=== PATIENT | female | born 1990 ===

== ENCOUNTER 2017-02-22 16:10 | Emergency (ER) | payer MEDICAID ==
[2017-02-22 16:21] VITALS: BP 120/82; PULSE 85; RESP 16; TEMP 99.7; O2SAT 100
--- NOTE | 2017-02-22 17:19 | ED PDOC ---
Lower Extremity Pain/Injury Time Seen by Provider: 02/22/17 16:23 Chief Complaint (Nursing): Lower Extremity Problem/Injury Chief Complaint (Provider): Bilateral knee pain History Per: Patient History/Exam Limitations: no limitations Onset/Duration Of Symptoms: Days (x 2 days) Current Symptoms Are (Timing): Still Present Additional Complaint(s): Naomy Loaiza is a 26-year-old female who presents to the emergency department complaining of bilateral knee pain, ongoing for the past 2 days. Patient denies sustaining a fall or injury. She also complains of finger numbness, ongoing for 3 weeks, for which she has not yet seen her primary medical doctor. Patient admits taking Motrin once yesterday, but none today. PMD: Dr. Skaggs Past Medical History Reviewed: Historical Data, Nursing Documentation, Vital Signs Vital Signs: Last Vital Signs Temp 99.7 F H 02/22/17 16:17 Pulse 85 02/22/17 16:17 Resp 16 02/22/17 16:17 BP 120/82 02/22/17 16:17 Pulse Ox 100 02/22/17 16:17 - Medical History PMH: Asthma, Chronic Pain (Back pain ) Denies: Chronic Kidney Disease - Surgical History Surgical History: No Surg Hx - Family History Family History: States: Unknown Family Hx - Immunization History Hx Tetanus Toxoid Vaccination: No Hx Influenza Vaccination: No Hx Pneumococcal Vaccination: No - Home Medications Home Medications: Ambulatory Orders Medication Instructions Recorded Proventil Hfa 2 puff INH BID 06/18/13 Nitrofurantoin Macrocrystals 100 mg PO BID #14 cap 11/15/16 [Macrobid] - Allergies Allergies/Adverse Reactions: Allergies Allergy/AdvReac Type Severity Reaction Status Date / Time banana Allergy SHORTNESS Verified 02/22/17 16:17 OF BREATH walnut Allergy SHORTNESS Verified 02/22/17 16:17 OF BREATH dust Allergy Unknown SHORTNESS Uncoded 11/15/16 17:22 OF BREATH Review of Systems ROS Statement: Except As Marked, All Systems Reviewed And Found Negative Musculoskeletal: Positive for: Other (Knee pain bilaterally) Neurological: Positive for: Other (Finger numbness) Physical Exam - Reviewed Nursing Documentation Reviewed: Yes Vital Signs Reviewed: Yes - Physical Exam Appears: Positive for: Well, Non-toxic, No Acute Distress Head Exam: Positive for: ATRAUMATIC, NORMAL INSPECTION, NORMOCEPHALIC Skin: Positive for: Normal Color, Warm, Dry Eye Exam: Positive for: Normal appearance Neck: Positive for: Normal, Painless ROM, Supple Neurologic/Psych: Positive for: Alert, Oriented - ECG O2 Sat by Pulse Oximetry: 100 (RA) Pulse Ox Interpretation: Normal Medical Decision Making Medical Decision Making: Time: 17:22 Initial Plan: --Toradol 30 mg IM --Pending X-Ray: Knee 3 views bi (RAD) x-ray: Both patellas appear mildly displaced laterally Scribe Attestation: Documented by Deepti Reilly, acting as a scribe for Belle Capone PA-C Provider Scribe Attestation: All medical record entries made by the Scribe were at my direction and personally dictated by me. I have reviewed the chart and agree that the record accurately reflects my personal performance of the history, physical exam, medical decision making, and the department course for this patient. I have also personally directed, reviewed, and agree with the discharge instructions and disposition. Disposition - Clinical Impression Clinical Impression: Knee pain - Patient ED Disposition Is Patient to be Admitted: No - Disposition Referrals: Merrick Skaggs MD [Primary Care Provider] - John Rendon MD [Staff Provider] - Disposition: Routine/Home Disposition Time: 18:10 Condition: GOOD Additional Instructions: Ice, elevation, motrin. Please follow-up with orthopedics. Instructions: Knee Pain (ED)
--- NOTE | 2017-02-23 13:18 | RAD ---
PROCEDURE: Bilateral Knee Radiographs. HISTORY: bilateral knee pain COMPARISON: None. FINDINGS: BONES: Bone alignment and mineralization are normal. There is no acute displaced fracture or bone destruction. JOINTS: Right Knee: Normal. Left knee: Normal. SOFT TISSUES: Right Knee: Normal. Left Knee: Normal. JOINT EFFUSION: Right Knee: None. Left Knee: None. OTHER FINDINGS: None. IMPRESSION: Normal examination.
== END 2017-02-22 18:40 | disposition home or self-care (01) ==
LOC: H.ER 16:10
DX: G89.29 Other chronic pain (principal); J45.909 Unspecified asthma, uncomplicated
CPT/HCPCS: 73562; 81025; 96372; 99282; J1885

== ENCOUNTER 2017-04-18 08:07 | Emergency (ER) | payer MEDICAID ==
[2017-04-18 08:12] VITALS: BMI 40.8
[2017-04-18 08:13] VITALS: BP 106/71; PULSE 70; RESP 17; TEMP 98.2; O2SAT 98
--- NOTE | 2017-04-18 09:36 | ED PDOC ---
Lower Extremity Pain/Injury Time Seen by Provider: 04/18/17 09:07 Chief Complaint (Nursing): Lower Extremity Problem/Injury Chief Complaint (Provider): Right knee pain History Per: Patient History/Exam Limitations: no limitations Onset/Duration Of Symptoms: Days (x1) Current Symptoms Are (Timing): Still Present Additional Complaint(s): Naomy Loaiza is a 26 year old female, with a past medical history of chronic back pain and asthma, who presents to the emergency department complaining of an atraumatic right knee radiating to her ankle for 1 day. Patient reports swollen right leg and knee and states symptoms worsen with ambulation. Patient has a history of hip and knee problems and was seen 2 months ago for the same symptoms. Patient denies any numbness or tingling, chest pain, shortness of breath, nausea, vomit, and abdominal pain. No further medical complaints. PMD: Merrick Skaggs Past Medical History Reviewed: Historical Data, Nursing Documentation, Vital Signs Vital Signs: Last Vital Signs Temp 98.2 F 04/18/17 08:12 Pulse 70 04/18/17 08:12 Resp 17 04/18/17 08:12 BP 106/71 04/18/17 08:12 Pulse Ox 98 04/18/17 08:12 - Medical History PMH: Asthma, Chronic Pain (Back pain ) Denies: Chronic Kidney Disease - Family History Family History: States: Unknown Family Hx - Social History Current smoker - smoking cessation education provided: No Alcohol: None Drugs: Denies - Immunization History Hx Tetanus Toxoid Vaccination: No Hx Influenza Vaccination: No Hx Pneumococcal Vaccination: No - Home Medications Home Medications: Ambulatory Orders Medication Instructions Recorded Proventil Hfa 2 puff INH BID 06/18/13 Nitrofurantoin Macrocrystals 100 mg PO BID #14 cap 11/15/16 [Macrobid] Ibuprofen [Motrin] 600 mg PO Q6 #30 tab 04/18/17 - Allergies Allergies/Adverse Reactions: Allergies Allergy/AdvReac Type Severity Reaction Status Date / Time banana Allergy SHORTNESS Verified 02/22/17 16:17 OF BREATH walnut Allergy SHORTNESS Verified 02/22/17 16:17 OF BREATH dust Allergy Unknown SHORTNESS Uncoded 11/15/16 17:22 OF BREATH Review of Systems ROS Statement: Except As Marked, All Systems Reviewed And Found Negative Cardiovascular: Negative for: Chest Pain Respiratory: Negative for: Shortness of Breath Gastrointestinal: Negative for: Nausea, Vomiting, Abdominal Pain Musculoskeletal: Positive for: Other (right hip pain radiating to her ankle) Physical Exam - Reviewed Nursing Documentation Reviewed: Yes Vital Signs Reviewed: Yes - Physical Exam Appears: Positive for: Well, Non-toxic, No Acute Distress Head Exam: Positive for: ATRAUMATIC, NORMAL INSPECTION, NORMOCEPHALIC Skin: Positive for: Normal Color, Warm, Dry Eye Exam: Positive for: Normal appearance, EOMI, PERRL ENT: Positive for: Normal ENT Inspection Neck: Positive for: Normal, Painless ROM, Supple Cardiovascular/Chest: Positive for: Regular Rate, Rhythm. Negative for: Murmur Respiratory: Positive for: Normal Breath Sounds. Negative for: Respiratory Distress Gastrointestinal/Abdominal: Positive for: Normal Exam, Bowel Sounds, Soft. Negative for: Tenderness (No bony hip tenderness, normal ROM at hip) Back: Positive for: Normal Inspection Extremity: Negative for: Normal ROM (decreased active ROM at the right knee ), Tenderness (ankle: wnl, no tenderness, no ligamentous instability or swelling), Calf Tenderness, Deformity Neurologic/Psych: Positive for: Alert, Oriented, Gait (steady). Negative for: Motor/Sensory Deficits - ECG O2 Sat by Pulse Oximetry: 98 (RA) Pulse Ox Interpretation: Normal Medical Decision Making Medical Decision Making: Initial Impression: 26 y/o female with right knee pain. Duplex to rule out DVT. r/o fracture Initial Plan: --Toradol 30 mg IM --Urine --Knee w/ patella right 3 views [RAD] --Duplex lower extrm vein right [US] --reevaluation 1016 Extremity US FINDINGS: COMMON FEMORAL VEIN: Normal compressibility, augmentation response and color flow. SUPERFICIAL FEMORAL VEIN: Normal compressibility, augmentation response and color flow. POPLITEAL VEIN: Normal compressibility, augmentation response and color flow. POSTERIOR TIBIAL VEIN: Normal compressibility, augmentation response and color flow. OTHER FINDINGS: None. IMPRESSION: No evidence of deep venous thrombosis in the right lower extremity. 1037 Knee X-ray FINDINGS: BONES: Normal. No fracture. JOINTS: Normal. JOINT EFFUSION: There is a small suprapatellar joint effusion. OTHER FINDINGS: None. IMPRESSION: No acute fracture or dislocation. Scribe Attestation: Documented by George Hidalgo, acting as a scribe for Lashell Saldana MD. Provider Scribe Attestation: All medical record entries made by the Scribe were at my direction and personally dictated by me. I have reviewed the chart and agree that the record accurately reflects my personal performance of the history, physical exam, medical decision making, and the department course for this patient. I have also personally directed, reviewed, and agree with the discharge instructions and disposition. 10:20AM Range of motion improved after toradol. Patient discharged with knee immobilizer and instructions to follow-up with PMD for further evaluation. Requesting school note which was given. Disposition - Clinical Impression Clinical Impression: Knee pain - Disposition Disposition: Routine/Home Disposition Time: 11:01 Condition: GOOD Additional Instructions: Wear knee immobilizer. Follow-up with PMD for persistent pain for further evaluation and likely outpatient MRI. Return to ED if condition worsens. Motrin for pain. Prescriptions: Ibuprofen [Motrin] 600 mg PO Q6 #30 tab Instructions: Knee Pain (ED) Forms: [facility] (Macedonian), [facility] ED School/Work Excuse
--- NOTE | 2017-04-18 10:18 | US ---
PROCEDURE: Right lower extremity venous duplex Doppler. HISTORY: Right leg swelling, knee pain COMPARISON: None available. TECHNIQUE: Common femoral, superficial femoral, popliteal and posterior tibial veins were evaluated. Flow was assessed with color Doppler, compressibility, assessment of phasic flow and augmentation response. FINDINGS: COMMON FEMORAL VEIN: Normal compressibility, augmentation response and color flow. SUPERFICIAL FEMORAL VEIN: Normal compressibility, augmentation response and color flow. POPLITEAL VEIN: Normal compressibility, augmentation response and color flow. POSTERIOR TIBIAL VEIN: Normal compressibility, augmentation response and color flow. OTHER FINDINGS: None. IMPRESSION: No evidence of deep venous thrombosis in the right lower extremity.
--- NOTE | 2017-04-18 10:39 | RAD ---
PROCEDURE: Right Knee Radiographs. HISTORY: R knee pain COMPARISON: 02/22/2017. FINDINGS: BONES: Normal. No fracture. JOINTS: Normal. JOINT EFFUSION: There is a small suprapatellar joint effusion. OTHER FINDINGS: None. IMPRESSION: No acute fracture or dislocation.
== END 2017-04-18 11:26 | disposition home or self-care (01) ==
LOC: H.ER 08:07
DX: M25.561 Pain in right knee (principal); J45.909 Unspecified asthma, uncomplicated; G89.29 Other chronic pain
CPT/HCPCS: 29530; 73562; 81025; 93971; 96372; 99283; J1885

== ENCOUNTER 2017-08-15 09:06 | Emergency (ER) | payer MEDICAID ==
[2017-08-15 09:07] VITALS: BMI 40.8
[2017-08-15] MEDS ORDERED: Albuterol-Ipratrop 3 mg / 0.5 (3 ml) UD INH STA (09:34)
[2017-08-15 09:41] VITALS: RESP 20; O2SAT 98
--- NOTE | 2017-08-15 09:42 | ED PDOC ---
HPI: CCC, URI, Sore Throat Time Seen by Provider: 08/15/17 09:22 Chief Complaint (Nursing): Cough, Cold, Congestion Chief Complaint (Provider): Cough History Per: Patient History/Exam Limitations: no limitations Onset/Duration Of Symptoms: Days (1 week) Additional Complaint(s): Pt. with cough, congestion, runny nose. Feels chest congestion like her asthma. Dyspnea/wheezes. Bodyaches. Headache mild all over that is not worst of her life. No weakness, abd pain, back pain. Has a fever at home and took ibuprofen yesterday. No nausea, vomit, diarrhea. No weakness. No numbness, tingles. Past Medical History Reviewed: Nursing Documentation, Vital Signs Vital Signs: Last Vital Signs Temp 99.3 F 08/15/17 09:31 Pulse 98 H 08/15/17 09:31 Resp 20 08/15/17 09:31 BP 120/83 08/15/17 09:31 Pulse Ox 98 08/15/17 09:51 - Medical History PMH: Asthma, Chronic Pain (Back pain ) Denies: Chronic Kidney Disease - Family History Family History: States: Unknown Family Hx - Social History Current smoker - smoking cessation education provided: No Alcohol: None Drugs: Denies - Immunization History Hx Tetanus Toxoid Vaccination: No Hx Influenza Vaccination: No Hx Pneumococcal Vaccination: No - Home Medications Home Medications: Ambulatory Orders Medication Instructions Recorded Proventil Hfa 2 puff INH BID 06/18/13 Nitrofurantoin Macrocrystals 100 mg PO BID #14 cap 11/15/16 [Macrobid] Ibuprofen [Motrin] 600 mg PO Q6 #30 tab 04/18/17 Benzonatate [Tessalon Perles] 100 mg PO BID PRN 5 Days sgl 08/15/17 Ibuprofen [Motrin] 600 mg PO TID 7 Days tab 08/15/17 - Allergies Allergies/Adverse Reactions: Allergies Allergy/AdvReac Type Severity Reaction Status Date / Time banana Allergy SHORTNESS Verified 08/15/17 09:31 OF BREATH walnut Allergy SHORTNESS Verified 08/15/17 09:31 OF BREATH dust Allergy Unknown SHORTNESS Uncoded 08/15/17 09:31 OF BREATH Review of Systems Constitutional: Positive for: Fever. Negative for: Weakness ENT: Positive for: Nose Pain, Nose Discharge, Nose Congestion Cardiovascular: Negative for: Chest Pain, Edema, Light Headedness Respiratory: Positive for: Cough, Shortness of Breath, Wheezing Gastrointestinal: Negative for: Nausea, Vomiting, Abdominal Pain Musculoskeletal: Negative for: Neck Pain, Shoulder Pain, Arm Pain Skin: Negative for: Rash, Lesions Neurological: Positive for: Headache. Negative for: Weakness, Numbness Physical Exam - Reviewed Nursing Documentation Reviewed: Yes Vital Signs Reviewed: Yes - Physical Exam Appears: Positive for: Non-toxic, No Acute Distress Head Exam: Positive for: ATRAUMATIC, NORMAL INSPECTION, NORMOCEPHALIC Skin: Positive for: Normal Color, Warm, DRY Eye Exam: Positive for: EOMI, Normal appearance, PERRL ENT: Positive for: Nasal Congestion Neck: Positive for: Normal, Painless ROM Cardiovascular/Chest: Positive for: Regular Rate, Rhythm. Negative for: Edema Respiratory: Positive for: Decreased Breath Sounds. Negative for: Accessory Muscle Use, Wheezing, Respiratory Distress Gastrointestinal/Abdominal: Positive for: Normal Exam, Bowel Sounds, Soft. Negative for: Tenderness Back: Positive for: Normal Inspection. Negative for: L CVA Tenderness, R CVA Tenderness Extremity: Positive for: Normal ROM. Negative for: Tenderness, Pedal Edema Neurologic/Psych: Positive for: Alert, Oriented - Laboratory Results Interpretation Of Abn Labs: no acute - ECG O2 Sat by Pulse Oximetry: 98 Pulse Ox Interpretation: Normal - Progress ED Course And Treament: 1051: Stable. AAOx3. Pain free. Tolerated PO. Fu with pcp. Likely URI. Disposition - Clinical Impression Clinical Impression: URI (upper respiratory infection) - Patient ED Disposition Is Patient to be Admitted: No Counseled Patient/Family Regarding: Studies Performed, Diagnosis, Need For Followup, Rx Given - Disposition Referrals: [facility] [Outside] - 08/16/17 Disposition: Routine/Home Disposition Time: 10:52 Condition: STABLE Additional Instructions: Return if not better in 3 days. Prescriptions: Benzonatate [Tessalon Perles] 100 mg PO BID PRN 5 Days sgl PRN Reason: Cough Ibuprofen [Motrin] 600 mg PO TID 7 Days tab Instructions: Upper Respiratory Infection (ED) Forms: [employer] (Pashto), [facility] ED School/Work Excuse
[2017-08-15 11:06] VITALS: BP 120/70; PULSE 76; TEMP 98
== END 2017-08-15 11:06 | disposition home or self-care (01) ==
LOC: H.ER 09:06
DX: J06.9 Acute upper respiratory infection, unspecified (principal); G89.29 Other chronic pain; J45.909 Unspecified asthma, uncomplicated

== ENCOUNTER 2017-08-27 21:43 | Emergency (ER) | payer MEDICAID ==
[2017-08-27 21:44] VITALS: BMI 40.8
[2017-08-27] MEDS ORDERED: Albuterol-Ipratrop 3 mg / 0.5 (3 ml) UD INH STA ×3 (22:51→22:54)
[2017-08-27 22:53] VITALS: BP 150/117; PULSE 102; RESP 16; TEMP 98.4; O2SAT 97
--- NOTE | 2017-08-27 23:06 | ED PDOC ---
HPI: CCC, URI, Sore Throat Time Seen by Provider: 08/27/17 22:08 Chief Complaint (Nursing): Cough, Cold, Congestion Chief Complaint (Provider): Cough, Cold, Congestion History Per: Patient History/Exam Limitations: no limitations Onset/Duration Of Symptoms: Days (x2 weeks) Current Symptoms Are (Timing): Still Present Additional Complaint(s): 27 year old female with previous medical history of asthma, who presents to the emergency department with a complaint of cough with productive yellow sputum associated with nausea, headache, generalized bodyaches, runny nose and chest tightness ongoing for 2 weeks. Denied any fever or chills. Patient was recently seen in ED for similar symptoms and discharged with cough medication and Ibuprofen. She then followed up with her PMD who prescribed more Ibruprofen but with persistent symptoms, prompted visit to ED tonight. PMD: Ketan Bassett MD Past Medical History Reviewed: Historical Data, Nursing Documentation, Vital Signs Vital Signs: Last Vital Signs Temp 98.4 F 08/27/17 21:50 Pulse 102 H 08/27/17 21:50 Resp 16 08/27/17 21:50 BP 150/117 H 08/27/17 21:50 Pulse Ox 97 08/28/17 00:25 - Medical History PMH: Asthma, Chronic Pain (Back pain ) Denies: Chronic Kidney Disease - Surgical History Surgical History: No Surg Hx - Family History Family History: States: Unknown Family Hx - Social History Current smoker - smoking cessation education provided: No Alcohol: None Drugs: Denies - Immunization History Hx Tetanus Toxoid Vaccination: No Hx Influenza Vaccination: No Hx Pneumococcal Vaccination: No - Home Medications Home Medications: Ambulatory Orders Medication Instructions Recorded Proventil Hfa 2 puff INH BID 06/18/13 Nitrofurantoin Macrocrystals 100 mg PO BID #14 cap 11/15/16 [Macrobid] Ibuprofen [Motrin] 600 mg PO Q6 #30 tab 04/18/17 Benzonatate [Tessalon Perles] 100 mg PO BID PRN 5 Days sgl 08/15/17 Ibuprofen [Motrin] 600 mg PO TID 7 Days tab 08/15/17 Albuterol 0.083% [Albuterol 3 ml IH Q4 PRN #50 neb 08/28/17 Sulfate 3 Ml] Azithromycin 1 tab PO DAILY #6 tab 08/28/17 Nebulizer [Aeroeclipse II] 1 each MC PRN PRN #1 each 08/28/17 Prednisone 50 mg PO DAILY #4 tablet 08/28/17 - Allergies Allergies/Adverse Reactions: Allergies Allergy/AdvReac Type Severity Reaction Status Date / Time banana Allergy SHORTNESS Verified 08/15/17 09:31 OF BREATH walnut Allergy SHORTNESS Verified 08/15/17 09:31 OF BREATH dust Allergy Unknown SHORTNESS Uncoded 08/15/17 09:31 OF BREATH Review of Systems ROS Statement: Except As Marked, All Systems Reviewed And Found Negative Constitutional: Positive for: Other (generalized bodyaches). Negative for: Fever, Chills ENT: Positive for: Nose Discharge Cardiovascular: Positive for: Chest Pain (tightness) Respiratory: Positive for: Cough, Sputum (yellow). Negative for: Hemoptysis Gastrointestinal: Positive for: Nausea Neurological: Positive for: Headache Physical Exam - Reviewed Nursing Documentation Reviewed: Yes Vital Signs Reviewed: Yes - Physical Exam Appears: Positive for: Non-toxic, In Acute Distress Head Exam: Positive for: ATRAUMATIC, NORMOCEPHALIC Skin: Positive for: Warm, Dry Eye Exam: Positive for: EOMI, PERRL ENT: Positive for: Pharynx Is (clear). Negative for: Pharyngeal Erythema, Tonsillar Exudate Neck: Positive for: Painless ROM Cardiovascular/Chest: Positive for: Regular Rate, Rhythm, Chest Non Tender. Negative for: Murmur Respiratory: Positive for: Wheezing, Respiratory Distress (mild). Negative for : Accessory Muscle Use Gastrointestinal/Abdominal: Positive for: Soft. Negative for: Tenderness Back: Positive for: Normal Inspection. Negative for: Decreased ROM Extremity: Positive for: Normal ROM. Negative for: Deformity Lymphatic: Negative for: Adenopathy Neurologic/Psych: Positive for: Alert. Negative for: Motor/Sensory Deficits - Laboratory Results Result Diagrams: 08/27/17 23:49 08/27/17 23:49 - ECG O2 Sat by Pulse Oximetry: 97 (RA) Pulse Ox Interpretation: Normal Medical Decision Making Medical Decision Making: Initial Impression: Cough Differential Diagnosis: Bronchititis; pneumonia; asthma exacerbation; influenza ; viral illness Initial Plan: * VBG * CMP * Urine * Urine dipstick * CBC * CXR * Duoneb 3ml INH * Solu-medrol 125mg IVP * Blood culture * Influenza A B CXR with mild peribronchial thickening, No infiltrate or effusion Labs wnl DW pt findings and plan of care. Pt feels a little better. Scribe Attestation: Documented by Elvie Garner, acting as a scribe for Adrienne Yoo MD. Provider Scribe Attestation: All medical record entries made by the Scribe were at my direction and personally dictated by me. I have reviewed the chart and agree that the record accurately reflects my personal performance of the history, physical exam, medical decision making, and the department course for this patient. I have also personally directed, reviewed, and agree with the discharge instructions and disposition. Disposition - Clinical Impression Clinical Impression: Bronchitis, Asthma exacerbation Counseled Patient/Family Regarding: Studies Performed, Diagnosis, Need For Followup, Rx Given - Disposition Referrals: Ketan Bassett MD [Staff Provider] - 08/29/17 Disposition: Routine/Home Disposition Time: 00:15 Condition: IMPROVED Prescriptions: Albuterol 0.083% [Albuterol Sulfate 3 Ml] 3 ml IH Q4 PRN #50 neb PRN Reason: asthma Azithromycin 1 tab PO DAILY #6 tab Nebulizer [Aeroeclipse II] 1 each MC PRN PRN #1 each PRN Reason: asthma Prednisone 50 mg PO DAILY #4 tablet Instructions: Asthma (ED), Acute Bronchitis (ED) Forms: [facility] ED School/Work Excuse
[2017-08-27] MEDS ORDERED: Albuterol-Ipratrop 3 mg / 0.5 (3 ml) UD ONE (23:29)
[2017-08-27 23:53] LABS: BASO # 0.2 K/uL (0.0-0.2); BASO % 1.2 % (0.0-2.0); EOS # 0.5 K/uL (0.0-0.7); EOS % 3.2 % (0.0-4.0); HEMOGLOBIN 13.1 g/dL (12.0-16.0); LYMPH # 4.7 K/uL (1.0-4.3); LYMPH % 30.7 % (20.0-40.0); MEAN CELL VOLUME 84.7 fl (81.0-99.0); MEAN PLATELET VOLUME 8.9 fl (7.2-11.7); MONO # 0.6 K/uL (0.0-0.8); MONO % 3.7 % (0.0-10.0); NEUT # 9.3 K/uL (1.8-7.0); NEUT % 61.2 % (50.0-75.0); NRBC % 0.3 % (0.0-0.0); RBC 4.69 Mil/uL (3.80-5.20); RED CELL DISTRIBUTION WIDTH 15.6 % (11.5-14.5); WHITE BLOOD COUNT 15.2 K/uL (4.8-10.8)
[2017-08-27 23:56] LABS: VENOUS BLOOD GAS BASE EXCESS 2.9 mmol/L (0.0-2.0); VENOUS BLOOD GAS PCO2 43 mmHg (40-60); VENOUS BLOOD GAS PO2 53 mm/Hg (30-55); VENOUS BLOOD PH 7.42 (7.32-7.43)
[2017-08-28 00:02] LABS: GFR AFRICAN-AMERICAN > 60; GFR NON-AFRICAN AMERICAN > 60
[2017-08-28 00:14] LABS: ALB/GLOB RATIO 0.9 (1.0-2.1); ALT/SGPT 33 U/L (9-52); AST/SGOT 30 U/L (14-36); BLOOD UREA NITROGEN 15 mg/dl (7-17)
--- NOTE | 2017-08-28 11:09 | RAD ---
HISTORY: Shortness of breath, cough COMPARISON: 06/07/2012. TECHNIQUE: Chest PA and lateral FINDINGS: LUNGS: No active pulmonary disease. PLEURA: No significant pleural effusion identified. No pneumothorax apparent. CARDIOVASCULAR: Normal. OSSEOUS STRUCTURES: No significant abnormalities. VISUALIZED UPPER ABDOMEN: Normal. OTHER FINDINGS: None. IMPRESSION: No active disease. No significant interval change compared to the prior examination(s).
== END 2017-08-28 00:35 | disposition home or self-care (01) ==
LOC: H.ER 21:43
DX: J45.901 Unspecified asthma with (acute) exacerbation (principal); J40 Bronchitis, not specified as acute or chronic; G89.29 Other chronic pain
CPT/HCPCS: 71046; 80053; 81025; 82803; 85025; 87040; 87804; 94640; 96374; 99281; J2930

== ENCOUNTER 2017-09-25 13:53 | Emergency (ER) | payer MEDICAID ==
[2017-09-25 13:53] VITALS: BMI 40.8
[2017-09-25 14:08] VITALS: TEMP 98; O2SAT 98
--- NOTE | 2017-09-25 14:24 | ED PDOC ---
HPI: General Adult Time Seen by Provider: 09/25/17 14:22 Chief Complaint (Nursing): Shortness Of Breath Chief Complaint (Provider): SOB History Per: Patient Additional Complaint(s): 27-year-old female with history of asthma presents with shortness of breath and cough that started yesterday. Patient denies fever or chills. She has been compliant with her asthma medications but still feels short of breath. Patient denies recent travel or known sick contacts. Patient states her primary doctor started her on a second maintenance inhaler last week but she does not know the name of the new med. PMD: Dr. Bassett Past Medical History Reviewed: Historical Data, Nursing Documentation, Vital Signs Vital Signs: Last Vital Signs Temp 98.0 F 09/25/17 14:04 Pulse 102 H 09/25/17 14:04 Resp 20 09/25/17 16:07 BP 108/66 09/25/17 14:04 Pulse Ox 98 09/25/17 15:25 - Medical History PMH: Asthma - Family History Family History: States: No Known Family Hx - Living Arrangements Living Arrangements: With Family - Social History Current smoker - smoking cessation education provided: No Alcohol: Social Drugs: Denies - Home Medications Home Medications: Ambulatory Orders Medication Instructions Recorded Proventil Hfa 2 puff INH BID 06/18/13 Nitrofurantoin Macrocrystals 100 mg PO BID #14 cap 11/15/16 [Macrobid] Ibuprofen [Motrin] 600 mg PO Q6 #30 tab 04/18/17 Benzonatate [Tessalon Perles] 100 mg PO BID PRN 5 Days sgl 08/15/17 Ibuprofen [Motrin] 600 mg PO TID 7 Days tab 08/15/17 Albuterol 0.083% [Albuterol 3 ml IH Q4 PRN #50 neb 08/28/17 Sulfate 3 Ml] Azithromycin 1 tab PO DAILY #6 tab 08/28/17 Nebulizer [Aeroeclipse II] 1 each MC PRN PRN #1 each 08/28/17 Prednisone 50 mg PO DAILY #4 tablet 08/28/17 Albuterol HFA [Ventolin HFA 90 1 puff IH ASDIR #1 unit 09/25/17 mcg/actuation (8 g)] Benzonatate 200 mg PO TID PRN #20 capsule 09/25/17 Oseltamivir Phosphate [Tamiflu] 75 mg PO BID #10 capsule 09/25/17 Prednisone 50 mg PO DAILY #5 tablet 09/25/17 - Allergies Allergies/Adverse Reactions: Allergies Allergy/AdvReac Type Severity Reaction Status Date / Time banana Allergy SHORTNESS Verified 09/25/17 14:04 OF BREATH walnut Allergy SHORTNESS Verified 09/25/17 14:04 OF BREATH dust Allergy Unknown SHORTNESS Uncoded 08/15/17 09:31 OF BREATH Review of Systems ROS Statement: Except As Marked, All Systems Reviewed And Found Negative Constitutional: Negative for: Fever, Chills Cardiovascular: Positive for: Chest Pain Respiratory: Positive for: Cough, Shortness of Breath Physical Exam - Reviewed Nursing Documentation Reviewed: Yes Vital Signs Reviewed: Yes - Physical Exam Appears: Positive for: Well, Non-toxic, No Acute Distress Skin: Negative for: Rash Eye Exam: Positive for: Normal appearance Cardiovascular/Chest: Positive for: Regular Rate, Rhythm Respiratory: Positive for: Decreased Breath Sounds. Negative for: Wheezing, Respiratory Distress Extremity: Positive for: Normal ROM Neurologic/Psych: Positive for: Alert, Oriented - ECG Interpretation Of ECG: NSR 86 bpm, no acute finding, reviewed by PA and ED attending O2 Sat by Pulse Oximetry: 98 Pulse Ox Interpretation: Normal - Other Rad CXR X-Ray: Interpreted by Me, Viewed By Me X-Ray Interpretation: no acute finding Nebulizer Treatments/Peak Flow - Duonebs Number of Bronchodilator Doses given?: 1 (duoneb) - Pre/Post Peak Flow Pre Treatment Peak Flow: 300 Post treatment Peak Flow: 350 - Steroid Treatment Steroid: Oral (prednisone) - Clinical Response Clinical Response: Improved Medical Decision Making Medical Decision Makin27 year old with asthma exacerbation Plan: test CXR Duoneb x 1 Prednisone 60 mg PO EKG Flu A is positive. Will d/c with rx tamiflu, prednisone and tessalon perles. She was started to continue with Advil and Tylenol as needed for fever and body aches. Advised rest, fluids and follow up with primary doctor in 2-3 days. Disposition - Clinical Impression Clinical Impression: Influenza - Patient ED Disposition Is Patient to be Admitted: No Counseled Patient/Family Regarding: Studies Performed, Diagnosis, Need For Followup, Rx Given - Disposition Referrals: Ketan Bassett MD [Family Provider] - Disposition: Routine/Home Disposition Time: 16:57 Condition: STABLE Additional Instructions: Take prescription medications as directed. [id number] Tylenol and Motrin alternating for fever and body aches. Rest and drink plenty of fluids. Follow- up with primary doctor in 2-3 days. Prescriptions: Albuterol HFA [Ventolin HFA 90 mcg/actuation (8 g)] 1 puff IH ASDIR #1 unit Benzonatate 200 mg PO TID PRN #20 capsule PRN Reason: Cough Oseltamivir Phosphate [Tamiflu] 75 mg PO BID #10 capsule Prednisone 50 mg PO DAILY #5 tablet Instructions: Influenza (ED) Forms: [facility] (Pakistani), [facility] ED School/Work Excuse
[2017-09-25] MEDS ORDERED: Albuterol-Ipratrop 3 mg / 0.5 (3 ml) UD INH STA (14:54)
--- NOTE | 2017-09-25 15:20 | RAD ---
HISTORY: Cough COMPARISON: 09/25/2017 Time of the most recent examination: 13:43. TECHNIQUE: Chest PA and lateral FINDINGS: LUNGS: No active pulmonary disease. PLEURA: No significant pleural effusion identified. No pneumothorax apparent. CARDIOVASCULAR: Normal. OSSEOUS STRUCTURES: No significant abnormalities. VISUALIZED UPPER ABDOMEN: Normal. OTHER FINDINGS: None. IMPRESSION: No active disease. No significant interval change compared to the prior examination(s).
[2017-09-25] MEDS ORDERED: Albuterol-Ipratrop 3 mg / 0.5 (3 ml) UD ONE (15:28)
[2017-09-25 17:18] VITALS: BP 110/70; PULSE 98; RESP 18
--- NOTE | 2017-09-26 10:09 | CARD ---
APPROVED REPORT EKG Measurement Heart [id number] <Conclusion> Normal sinus rhythm Normal ECG
== END 2017-09-25 17:18 | disposition home or self-care (01) ==
LOC: H.ER 13:53
DX: J11.1 Influenza due to unidentified influenza virus with other respiratory manifestations (principal); J45.909 Unspecified asthma, uncomplicated

== ENCOUNTER 2018-01-01 19:08 | Emergency (ER) | payer MEDICAID, OTHER ==
[2018-01-01 19:08] VITALS: BMI 40.8
[2018-01-01 19:23] VITALS: BP 103/68; PULSE 88; RESP 18; TEMP 98.5; O2SAT 100
[2018-01-01] MEDS ORDERED: Iohexol 240 (50 ml) PO ONE (19:53)
[2018-01-01] MEDS ORDERED: Sodium Chloride 0.9% 1,000 ML IV STA (19:55)
[2018-01-01] MEDS ORDERED: Iohexol 240 (50 ml) ONE (19:59)
[2018-01-01 20:52] LABS: BASO # 0.1 K/uL (0.0-0.2); BASO % 0.7 % (0.0-2.0); EOS # 0.4 K/uL (0.0-0.7); EOS % 2.6 % (0.0-4.0); HEMOGLOBIN 12.7 g/dL (12.0-16.0); LYMPH # 5.2 K/uL (1.0-4.3); LYMPH % 37.9 % (20.0-40.0); MEAN CELL VOLUME 84.9 fl (81.0-99.0); MEAN PLATELET VOLUME 8.6 fl (7.2-11.7); MONO # 0.7 K/uL (0.0-0.8); MONO % 5.1 % (0.0-10.0); NEUT # 7.4 K/uL (1.8-7.0); NEUT % 53.7 % (50.0-75.0); RBC 4.55 Mil/uL (3.80-5.20); RED CELL DISTRIBUTION WIDTH 15.3 % (11.5-14.5); WHITE BLOOD COUNT 13.7 K/uL (4.8-10.8)
--- NOTE | 2018-01-01 21:01 | ED PDOC ---
HPI: Abdomen Time Seen by Provider: 01/01/18 19:41 Chief Complaint (Nursing): GI Problem Chief Complaint (Provider): Lower Abdominal Pain History Per: Patient History/Exam Limitations: no limitations Onset/Duration Of Symptoms: Days (1 week) Current Symptoms Are (Timing): Still Present Quality Of Discomfort: "Pain" Associated Symptoms: Vomiting (2-3 times), Diarrhea (watery, nonbloody). denies : Urinary Symptoms Additional Complaint(s): 27 year old female presents to the ED complaining of lower abdominal pain and vomiting onset 1 week ago. Reports she cannot tolerate food, she vomited 2-3 times. Patient can tolerate liquid. Also reports of watery diarrhea that is non- bloody. Patient was seen in ED 5 days ago and diagnosed with gastroenteritis. She states in spite of medication, she does not feel better. Also states she has sore throat and neck pain now due to the vomiting. Denies urinary or vaginal symptoms. PMD: Dr. Ybarra Past Medical History Reviewed: Historical Data, Nursing Documentation, Vital Signs Vital Signs: Last Vital Signs Temp 98.5 F 01/01/18 19:20 Pulse 88 01/01/18 19:20 Resp 18 01/01/18 19:20 BP 103/68 01/01/18 19:20 Pulse Ox 100 01/01/18 21:03 - Medical History PMH: Asthma, Chronic Pain (Back pain ) Denies: Chronic Kidney Disease - Family History Family History: States: Unknown Family Hx - Social History Current smoker - smoking cessation education provided: No Alcohol: Occasional Drugs: Denies - Immunization History Hx Tetanus Toxoid Vaccination: No Hx Influenza Vaccination: No Hx Pneumococcal Vaccination: No - Home Medications Home Medications: Ambulatory Orders Medication Instructions Recorded Proventil Hfa 2 puff INH BID 06/18/13 Nitrofurantoin Macrocrystals 100 mg PO BID #14 cap 11/15/16 [Macrobid] Ibuprofen [Motrin] 600 mg PO Q6 #30 tab 04/18/17 Benzonatate [Tessalon Perles] 100 mg PO BID PRN 5 Days sgl 08/15/17 Ibuprofen [Motrin] 600 mg PO TID 7 Days tab 08/15/17 Albuterol 0.083% [Albuterol 3 ml IH Q4 PRN #50 neb 08/28/17 Sulfate 3 Ml] Azithromycin 1 tab PO DAILY #6 tab 08/28/17 Nebulizer [Aeroeclipse II] 1 each MC PRN PRN #1 each 08/28/17 Prednisone 50 mg PO DAILY #4 tablet 08/28/17 Albuterol HFA [Ventolin HFA 90 1 puff IH ASDIR #1 unit 09/25/17 mcg/actuation (8 g)] Benzonatate 200 mg PO TID PRN #20 capsule 09/25/17 Oseltamivir Phosphate [Tamiflu] 75 mg PO BID #10 capsule 09/25/17 Prednisone 50 mg PO DAILY #5 tablet 09/25/17 Famotidine [Pepcid] 20 mg PO Q12 #20 tab 12/25/17 Ondansetron [Zofran] 4 mg PO Q8H #10 tab 12/25/17 Dicyclomine [Bentyl] 20 mg PO QID PRN #20 tab 01/02/18 Ibuprofen [Motrin Tab] 600 mg PO Q8 PRN #30 tab 01/02/18 Omeprazole Magnesium [Prilosec Otc] 20 mg PO DAILY #30 tcp 01/02/18 - Allergies Allergies/Adverse Reactions: Allergies Allergy/AdvReac Type Severity Reaction Status Date / Time banana Allergy SHORTNESS Verified 09/25/17 14:04 OF BREATH walnut Allergy SHORTNESS Verified 09/25/17 14:04 OF BREATH dust Allergy Unknown SHORTNESS Uncoded 08/15/17 09:31 OF BREATH Review of Systems ROS Statement: Except As Marked, All Systems Reviewed And Found Negative (As per HPI, otherwise negative) ENT: Positive for: Throat Pain Gastrointestinal: Positive for: Vomiting (2-3 times), Abdominal Pain (lower), Diarrhea (watery, non-bloody) Genitourinary Female: Negative for: Vaginal Discharge Musculoskeletal: Positive for: Neck Pain Physical Exam - Reviewed Nursing Documentation Reviewed: Yes Vital Signs Reviewed: Yes - Physical Exam Appears: Positive for: Non-toxic, No Acute Distress Head Exam: Positive for: ATRAUMATIC, NORMOCEPHALIC Skin: Positive for: Warm, Dry Eye Exam: Positive for: EOMI, PERRL ENT: Negative for: Pharyngeal Erythema, Tonsillar Exudate Neck: Positive for: Painless ROM, Supple Cardiovascular/Chest: Positive for: Regular Rate, Rhythm. Negative for: Murmur Respiratory: Positive for: Normal Breath Sounds. Negative for: Wheezing Gastrointestinal/Abdominal: Positive for: Soft, Tenderness (bilateral lower quadrant ). Negative for: Mass, Distended, Guarding, Rebound Back: Positive for: Normal Inspection. Negative for: Decreased ROM Extremity: Positive for: Normal ROM. Negative for: Deformity Lymphatic: Negative for: Adenopathy Neurologic/Psych: Positive for: Alert. Negative for: Motor/Sensory Deficits - Laboratory Results Result Diagrams: 01/01/18 20:49 01/01/18 20:49 - ECG O2 Sat by Pulse Oximetry: 100 (RA) Pulse Ox Interpretation: Normal Medical Decision Making Medical Decision Making: Time: 1952 Initial Impression: abdominal pain Differential Diagnosis includes but is not limited to: gastroenteritis, colitis , appendicitis, dehydration, diverticulitis Initial Plan: --ABD Pelvis PO & IV Contrast [CT] --CMP --Lipase --ED Urine --ED Urine Dipstick --CBC w/ Differential --Dextrose 1000 ml IV 100mls/hr --Normal Saline 1000 mls/hr --Iohexol 50ml --Reglan 10mg --Toradol 15mg --Zofran 8mg --Urine Culture --Urinalysis --Reevaluation Labs with UTI and leukocytosis. No emergently significant abnormalities. Accession No. : [id number] Patient Name / ID : GILBERTO GILBERT / [id number] Exam Date : 01/01/2018 22:50:04 ( Approved ) Study Comment : Sex / Age : F / 27Y Creator : NAVEEN ORTIZ MD Dictator : Automobile Repossessor : Headlight Adjuster : NAVEEN ORTIZ MD Approver2 : Report Date : 01/01/2018 23:51:00 My Comment : [facility] Division of Radiology [address] [place] [address] Tel. no. Patient Name: OFELIA MACIAS Pt. Address: [address] [place] [address]. Rec #: [id number] [place] [address]: Fredo HASKINS, Adrienne Valentine Pt CELL Order Location: [facility] : 1990 Female Age: 27 Order #: [id number] Reason for exam: lower abd pain vomiting CT Scan ABD PELVIS PO IV CONTRAST Exam Date: 01/01/18 This imaging exam was performed at [facility] EXAM: CT Abdomen and Pelvis With Intravenous Contrast CLINICAL HISTORY: 27 years old, female; Pain and signs and symptoms; Vomiting; Abdominal pain; Localized; Lower; Additional info: Lower abd pain vomiting TECHNIQUE: Axial computed tomography images of the abdomen and pelvis with intravenous contrast. All CT scans at this facility use one or more dose reduction techniques, viz.: automated exposure control; ma/kV adjustment per patient size (including targeted exams where dose is matched to indication; i.e. head); or iterative reconstruction technique. Coronal and sagittal reformatted images were created and reviewed. CONTRAST: 95 mL of [id number] administered intravenously. COMPARISON: CT - ABD PELVIS PO IV CONTRAST 2016-04-14 01:28 FINDINGS: Lung bases: Minimal atelectasis/scarring. Mediastinum: Small hiatal hernia. ABDOMEN: Liver: Fatty infiltration. Gallbladder and bile ducts: No calcified stones. No ductal dilation. Pancreas: No ductal dilation. No mass. Spleen: No splenomegaly. Adrenals: No mass. Kidneys and ureters: No mass. No hydronephrosis. Stomach and bowel: No definite mural thickening. No obstruction. PELVIS: Appendix: Normal caliber. No inflammation. Bladder: Unremarkable. Reproductive: 1.5 x 1.2 x 1.3 cm peripherally enhancing lesion with crenulated margins within RIGHT ovary. ABDOMEN and PELVIS: Intraperitoneal space: No significant fluid collection. No free air. Bones/joints: No acute fracture. Soft tissues: Small umbilical hernia containing fat. Vasculature: Retroaortic LEFT renal vein. No aneurysm. Lymph nodes: No pathologically enlarged lymph nodes. IMPRESSION: 1. Probable involuting or ruptured RIGHT ovarian follicle/cyst. 2. Incidental/non-acute findings are described above. Dictated By: Naveen Ortiz MD Dictated Date/Time: 01/01/182350 Signed By: Naveen Ortiz MD Date Signed: 2350 Transcribed By: JOSE Transcribe Date/Time : 01/01/182350 [id number] Pt feels better. ARYAN pt findings and plan of care. Macrobid for UTI, Zofran, Bentyl Scribe Attestation: Documented by Eduardo Rashid, acting as a scribe for Adrienne Yoo MD Provider Scribe Attestation: All medical record entries made by the Scribe were at my direction and personally dictated by me. I have reviewed the chart and agree that the record accurately reflects my personal performance of the history, physical exam, medical decision making, and the department course for this patient. I have also personally directed, reviewed, and agree with the discharge instructions and disposition. Disposition - Clinical Impression Clinical Impression: Gastroenteritis, Ovarian cyst, UTI (urinary tract infection) - Disposition Referrals: Ketan Ybarra MD [Family Provider] - (FOLLOW UP WITH DR YBARRA SOON POSSIBLE. YOU WILL NEED TO ALSO FOLLOW UP WITH A ASSISTANT PRODUCTION MANAGER IN 1-2 WEEKS) Disposition: Routine/Home Disposition Time: 00:05 Condition: IMPROVED Prescriptions: Dicyclomine [Bentyl] 20 mg PO QID PRN #20 tab PRN Reason: abdominal pain Ibuprofen [Motrin Tab] 600 mg PO Q8 PRN #30 tab PRN Reason: Pain, Moderate (4-7) Omeprazole Magnesium [Prilosec Otc] 20 mg PO DAILY #30 tcp Instructions: Ovarian Cysts, Urinary Tract Infections in Adults Forms: [facility] ED School/Work Excuse
[2018-01-01 21:04] LABS: URINE AMORPHOUS SEDIMENT OCC /ul (<OCC); URINE BILIRUBIN NEGATIVE (NEGATIVE); URINE BLOOD SMALL (NEGATIVE); URINE CALCIUM OXALATE CRYSTALS MOD /hpf (<OCC); URINE CLARITY CLOUDY (Clear); URINE COLOR YELLOW (YELLOW); URINE GLUCOSE (UA) NEG (Normal); URINE LEUKOCYTE ESTERASE MOD Leu/uL (Negative); URINE PROTEIN NEGATIVE (NEGATIVE); URINE UROBILINOGEN 0.2-1.0 mg/dL (0.2-1.0)
[2018-01-01 21:18] LABS: ALB/GLOB RATIO 0.9 (1.0-2.1); ALBUMIN 3.9 g/dL (3.5-5.0); ALT/SGPT 41 U/L (9-52); AST/SGOT 23 U/L (14-36); BLOOD UREA NITROGEN 15 mg/dl (7-17); CALCIUM 9.4 mg/dL (8.4-10.2); GFR AFRICAN-AMERICAN > 60; GFR NON-AFRICAN AMERICAN > 60; LIPASE 163 U/L (23-300)
[2018-01-01 21:27] LABS: SQUAMOUS EPITHIAL 9 /hpf (0-5)
[2018-01-01] MEDS ORDERED: Iohexol 300 100 ML IJ ONE (22:35)
[2018-01-01] MEDS ORDERED: Sodium Chloride 0.9% 50 ML IV ONE (22:36)
--- NOTE | 2018-01-01 23:52 | CT ---
EXAM: CT Abdomen and Pelvis With Intravenous Contrast CLINICAL HISTORY: 27 years old, female; Pain and signs and symptoms; Vomiting; Abdominal pain; Localized; Lower; Additional info: Lower abd pain vomiting TECHNIQUE: Axial computed tomography images of the abdomen and pelvis with intravenous contrast. All CT scans at this facility use one or more dose reduction techniques, viz.: automated exposure control; ma/kV adjustment per patient size (including targeted exams where dose is matched to indication; i.e. head); or iterative reconstruction technique. Coronal and sagittal reformatted images were created and reviewed. CONTRAST: 95 mL of [id number] administered intravenously. COMPARISON: CT - ABD PELVIS PO IV CONTRAST 2016-04-14 01:28 FINDINGS: Lung bases: Minimal atelectasis/scarring. Mediastinum: Small hiatal hernia. ABDOMEN: Liver: Fatty infiltration. Gallbladder and bile ducts: No calcified stones. No ductal dilation. Pancreas: No ductal dilation. No mass. Spleen: No splenomegaly. Adrenals: No mass. Kidneys and ureters: No mass. No hydronephrosis. Stomach and bowel: No definite mural thickening. No obstruction. PELVIS: Appendix: Normal caliber. No inflammation. Bladder: Unremarkable. Reproductive: 1.5 x 1.2 x 1.3 cm peripherally enhancing lesion with crenulated margins within RIGHT ovary. ABDOMEN and PELVIS: Intraperitoneal space: No significant fluid collection. No free air. Bones/joints: No acute fracture. Soft tissues: Small umbilical hernia containing fat. Vasculature: Retroaortic LEFT renal vein. No aneurysm. Lymph nodes: No pathologically enlarged lymph nodes. IMPRESSION: 1. Probable involuting or ruptured RIGHT ovarian follicle/cyst. 2. Incidental/non-acute findings are described above.
== END 2018-01-02 00:34 | disposition home or self-care (01) ==
LOC: H.ER 19:08
DX: K52.9 Noninfective gastroenteritis and colitis, unspecified (principal); N39.0 Urinary tract infection, site not specified; N83.209 Unspecified ovarian cyst, unspecified side; G89.29 Other chronic pain; J45.909 Unspecified asthma, uncomplicated
CPT/HCPCS: 74177; 80053; 81003; 81025; 83690; 85025; 87086; 96374; 99283; J1885; J2765; J7040; J7042; Q9966; Q9967

== ENCOUNTER 2018-04-29 12:38 | Emergency (ER) | payer MEDICAID, OTHER ==
[2018-04-29 13:03] VITALS: BMI 38.7
[2018-04-29 13:07] VITALS: RESP 18
[2018-04-29] MEDS ORDERED: Sodium Chloride 0.9% 1,000 ML IV STA (13:21)
--- NOTE | 2018-04-29 13:33 | ED PDOC ---
HPI: Abdomen Time Seen by Provider: 04/29/18 13:11 Chief Complaint (Nursing): GI Problem Chief Complaint (Provider): GI Problem History Per: Patient History/Exam Limitations: no limitations Onset/Duration Of Symptoms: Days (1) Location Of Pain/Discomfort: Epigastric Associated Symptoms: Nausea, Vomiting. denies: Fever, Diarrhea Additional Complaint(s): 27 years old female presents to the ED s/p gastric sleeve for evaluation of nausea and vomiting associated with epigastric abdominal pain since yesterday. Patient denies fever, diarrhea or blood in vomitus. PMD: non provided Past Medical History Reviewed: Historical Data, Nursing Documentation, Vital Signs Vital Signs: Last Vital Signs Temp 98 F 04/29/18 16:25 Pulse 64 04/29/18 16:19 Resp 18 04/29/18 16:19 BP 110/62 04/29/18 16:19 Pulse Ox 99 04/29/18 22:36 - Medical History PMH: Asthma, Chronic Pain (Back pain ) Denies: Chronic Kidney Disease - Surgical History Other surgeries: Epigastric Sleeve Placement - Family History Family History: States: Unknown Family Hx - Social History Current smoker - smoking cessation education provided: No Alcohol: None Drugs: Denies - Immunization History Hx Tetanus Toxoid Vaccination: No Hx Influenza Vaccination: No Hx Pneumococcal Vaccination: No - Home Medications Home Medications: Ambulatory Orders Medication Instructions Recorded Proventil Hfa 2 puff INH BID 06/18/13 Nitrofurantoin Macrocrystals 100 mg PO BID #14 cap 11/15/16 [Macrobid] Ibuprofen [Motrin] 600 mg PO Q6 #30 tab 04/18/17 Benzonatate [Tessalon Perles] 100 mg PO BID PRN 5 Days sgl 08/15/17 Ibuprofen [Motrin] 600 mg PO TID 7 Days tab 08/15/17 Albuterol 0.083% [Albuterol 3 ml IH Q4 PRN #50 neb 08/28/17 Sulfate 3 Ml] Azithromycin 1 tab PO DAILY #6 tab 08/28/17 Nebulizer [Aeroeclipse II] 1 each MC PRN PRN #1 each 08/28/17 Prednisone 50 mg PO DAILY #4 tablet 08/28/17 Albuterol HFA [Ventolin HFA 90 1 puff IH ASDIR #1 unit 09/25/17 mcg/actuation (8 g)] Benzonatate 200 mg PO TID PRN #20 capsule 09/25/17 Oseltamivir Phosphate [Tamiflu] 75 mg PO BID #10 capsule 09/25/17 Prednisone 50 mg PO DAILY #5 tablet 09/25/17 Famotidine [Pepcid] 20 mg PO Q12 #20 tab 12/25/17 Ondansetron [Zofran] 4 mg PO Q8H #10 tab 12/25/17 Dicyclomine [Bentyl] 20 mg PO QID PRN #20 tab 01/02/18 Ibuprofen [Motrin Tab] 600 mg PO Q8 PRN #30 tab 01/02/18 Omeprazole Magnesium [Prilosec Otc] 20 mg PO DAILY #30 tcp 01/02/18 Ondansetron ODT [Zofran ODT] 4 mg PO BID #6 odt 04/29/18 - Allergies Allergies/Adverse Reactions: Allergies Allergy/AdvReac Type Severity Reaction Status Date / Time banana Allergy SHORTNESS Verified 04/29/18 13:04 OF BREATH walnut Allergy SHORTNESS Verified 04/29/18 13:04 OF BREATH dust Allergy Unknown SHORTNESS Uncoded 04/29/18 13:04 OF BREATH Review of Systems ROS Statement: Except As Marked, All Systems Reviewed And Found Negative Constitutional: Negative for: Fever Gastrointestinal: Positive for: Nausea, Vomiting, Abdominal Pain (epigastric). Negative for: Diarrhea, Hematemesis Physical Exam - Reviewed Nursing Documentation Reviewed: Yes Vital Signs Reviewed: Yes - Physical Exam Appears: Positive for: Non-toxic, No Acute Distress Head Exam: Positive for: ATRAUMATIC, NORMOCEPHALIC Gastrointestinal/Abdominal: Positive for: Bowel Sounds (present), Soft, Tenderness (mild to epigastrium). Negative for: Distended Extremity: Positive for: Normal ROM Neurologic/Psych: Positive for: Alert, Oriented (x3) - Laboratory Results Result Diagrams: 04/29/18 13:35 04/29/18 13:35 - ECG O2 Sat by Pulse Oximetry: 99 (RA) Pulse Ox Interpretation: Normal Medical Decision Making Medical Decision Making: Time: 1321 Initial Plan: --CT Abd/Pelvis IV Contrast --CMP --Urine --Urine dipstick --CBC --NaCl 1,000 ml IV 100 mls/hr --Zofran 4 mg IVP ----- Scribe Attestation: Documented by Nadia Myers, acting as a scribe for Miller Giraldo MD. Provider Scribe Attestation: All medical record entries made by the Scribe were at my direction and personally dictated by me. I have reviewed the chart and agree that the record accurately reflects my personal performance of the history, physical exam, medical decision making, and the department course for this patient. I have also personally directed, reviewed, and agree with the discharge instructions and disposition Disposition - Clinical Impression Clinical Impression: Abdominal pain - Patient ED Disposition Is Patient to be Admitted: Transfer of Care - Disposition Disposition: Transfer of Care Disposition Time: 15:00 Condition: IMPROVED Additional Instructions: Take Zofran as needed for nausea/vomiting. Follow up with primary doctors in one to two days. Return to the emergency department if symptoms worsen. Prescriptions: Ondansetron ODT [Zofran ODT] 4 mg PO BID #6 odt Instructions: Viral Gastroenteritis, Viral Gastroenteritis, Adult (DC) Forms: [employer] (French) Print Language: OCCITAN Patient Signed Over To: Annabelle Huber
[2018-04-29 14:23] LABS: BASO # 0.1 K/uL (0.0-0.2); BASO % 0.6 % (0.0-2.0); EOS # 0.3 K/uL (0.0-0.7); EOS % 2.3 % (0.0-4.0); HEMOGLOBIN 12.7 g/dL (12.0-16.0); LYMPH # 2.7 K/uL (1.0-4.3); LYMPH % 21.4 % (20.0-40.0); MEAN CELL VOLUME 83.8 fl (81.0-99.0); MEAN CORPUSCULAR HEMOGLOBIN 27.2 pg (27.0-31.0); MEAN CORPUSCULAR HGB CONC 32.5 g/dL (33.0-37.0); MEAN PLATELET VOLUME 9.5 fl (7.2-11.7); MONO # 0.6 K/uL (0.0-0.8); MONO % 4.4 % (0.0-10.0); NEUT # 9.1 K/uL (1.8-7.0); NEUT % 71.3 % (50.0-75.0); NRBC % 0.2 % (0.0-0.0); RBC 4.66 Mil/uL (3.80-5.20); WHITE BLOOD COUNT 12.8 K/uL (4.8-10.8)
[2018-04-29 14:26] LABS: ALBUMIN 3.9 g/dL (3.5-5.0); ALT/SGPT 32 U/L (9-52); AST/SGOT 29 U/L (14-36); BLOOD UREA NITROGEN 8 mg/dl (7-17); CALCIUM 9.4 mg/dL (8.4-10.2); GFR NON-AFRICAN AMERICAN > 60
[2018-04-29] MEDS ORDERED: Iohexol 300 100 ML IJ ONE (15:13)
--- NOTE | 2018-04-29 15:39 | ED PDOC ---
- Laboratory Results Result Diagrams: 04/29/18 13:35 04/29/18 13:35 - ECG O2 Sat by Pulse Oximetry: 99 (RA) Medical Decision Making Medical Decision Makin:00 27 year old female presents with vomiting after gastric sleeve procedure. Labs normal and currently pending CT. Improved symptoms with GI medications and will dispo depending on CT scan. 17:42 Patient reports abdominal pain and vomiting have resolved. No acute pathology. Patient to be discharged with prescription for Zofran for 2 days. Patient will follow up with PMD. Scribe Attestation: Documented by Felix Langford acting as a scribe for Annabelle Huber MD. Provider Scribe Attestation: All medical record entries made by the Scribe were at my direction and personally dictated by me. I have reviewed the chart and agree that the record accurately reflects my personal performance of the history, physical exam, medical decision making, and the department course for this patient. I have also personally directed, reviewed, and agree with the discharge instructions and disposition. Disposition - Clinical Impression Clinical Impression: Abdominal pain - POA Present On Arrival: None - Disposition Disposition: Routine/Home Disposition Time: 17:42 Condition: IMPROVED Additional Instructions: Take Zofran as needed for nausea/vomiting. Follow up with primary doctors in one to two days. Return to the emergency department if symptoms worsen. Prescriptions: Ondansetron ODT [Zofran ODT] 4 mg PO BID #6 odt Instructions: Viral Gastroenteritis, Viral Gastroenteritis, Adult (DC) Forms: [employer] (Honduran) Print Language: [place]
[2018-04-29 16:19] VITALS: BP 110/62; PULSE 64
[2018-04-29 16:26] VITALS: TEMP 98
--- NOTE | 2018-04-29 16:32 | CT ---
Date of service: 04/29/2018 PROCEDURE: CT Abdomen and Pelvis with contrast HISTORY: Abd pain COMPARISON: 01/01/2018 TECHNIQUE: Contrast dose: 90 milliliters Radiation dose: Total exam DLP = 857 mGy-cm. This CT exam was performed using one or more of the following dose reduction techniques: Automated exposure control, adjustment of the mA and/or kV according to patient size, and/or use of iterative reconstruction technique. FINDINGS: LOWER THORAX: No appreciable infiltrate is seen at the lung bases. No pleural effusion or pericardial effusion is seen. Very small hiatal hernia is not excluded. There is additionally evidence of prior bariatric surgery involving the stomach. No gastric wall thickening is seen. No gastric distention is noted. Duodenum is unremarkable. LIVER: Slight fatty infiltration without evidence of focal mass or intrahepatic ductal dilatation. GALLBLADDER AND BILE DUCTS: Unremarkable. PANCREAS: Unremarkable. No gross lesion or ductal dilatation. SPLEEN: Unremarkable. ADRENALS: Unremarkable. No mass. KIDNEYS AND URETERS: Unremarkable. No hydronephrosis. No solid mass. VASCULATURE: Unremarkable. No aortic aneurysm. BOWEL: No small bowel dilatation or small bowel obstruction is noted. There is mild nonspecific possible colonic wall thickening involving the distal right colon and transverse colon as well as portions of the transverse colon and lesser degree in the left colon. Although the colon is decompressed a mild amount of nonspecific infectious or inflammatory colitis is not excluded. APPENDIX: Normal appendix. PERITONEUM: No ascites is seen. No free intraperitoneal air is noted. There is minor induration within the anterior abdominal mesentery, more than likely postsurgical in origin. LYMPH NODES: Unremarkable. No enlarged lymph nodes. BLADDER: Unremarkable. REPRODUCTIVE: No interval change in the appearance of the uterus which is retroverted in position. No adnexal masses seen. BONES: No acute fracture. OTHER FINDINGS: There is evidence of induration in the anterior abdominal wall subcutaneous soft tissues and right anterior abdominal wall musculature, new from the prior study and probably related to postsurgical change. No appreciable hematoma is noted within the rectus musculature. No inguinal hernias are noted. IMPRESSION: Status post gastric bypass surgery with mild postsurgical changes of the stomach. There are additional probable postsurgical changes in the right anterior subcutaneous abdominal wall and medial right rectus with mild induration identified. No hematoma or free intraperitoneal air. Mild nonspecific colonic thickening. A mild amount of colitis is not excluded. A portion of this could be related to underdistention. Correlation with symptoms and laboratory values is suggested. No CT scan evidence of appendicitis.
[2018-04-29 17:43] VITALS: O2SAT 99
== END 2018-04-29 18:00 | disposition home or self-care (01) ==
LOC: H.ER 12:38
DX: R10.13 Epigastric pain (principal); R11.2 Nausea with vomiting, unspecified; G89.29 Other chronic pain; Z98.84 Bariatric surgery status
CPT/HCPCS: 74177; 80053; 81025; 85025; 96374; 99284; J2405; J7030; Q9967

== ENCOUNTER → 2018-08-26 | Emergency (ER) | payer MEDICAID ==
[~2018-08-26] MED LIST: Sodium Chloride 0.9% 1,000 ML IV STA
[2018-08-26 00:23] VITALS: BMI 38.7
[2018-08-26 00:32] VITALS: BP 107/62; PULSE 66; RESP 18; TEMP 98.6; O2SAT 98
--- NOTE | 2018-08-26 01:33 | ED PDOC ---
HPI: Abdomen Time Seen by Provider: 08/26/18 00:39 Chief Complaint (Nursing): Abdominal Pain Chief Complaint (Provider): Abdominal Pain History Per: Patient History/Exam Limitations: no limitations Onset/Duration Of Symptoms: Hrs (2) Additional Complaint(s): 28 y/o female presents to the ED via [facility] for evaluation of periumbilical abdominal pain with associated x3 episodes of non-bloody non- bilious vomiting since 22:00. Patient describes the pain as cramping. She denies taking any medication prior to arrival. Denies fever, diarrhea, urinary symptoms, hematuria, cough, chest pain, or shortness of breath. PMD: Danyelle Last Menstral Period: 2 days ago Past Medical History Reviewed: Historical Data, Nursing Documentation, Vital Signs Vital Signs: Last Vital Signs Temp 98.6 F 08/26/18 00:26 Pulse 66 08/26/18 00:26 Resp 18 08/26/18 00:26 BP 107/62 08/26/18 00:26 Pulse Ox 98 08/26/18 00:26 - Medical History PMH: Asthma, Chronic Pain (Back pain ) - Surgical History Other surgeries: Gastric Sleeve (03/31) - Family History Family History: States: Unknown Family Hx - Home Medications Home Medications: Ambulatory Orders Medication Instructions Recorded Proventil Hfa 2 puff INH BID 06/18/13 Nitrofurantoin Macrocrystals 100 mg PO BID #14 cap 11/15/16 [Macrobid] Ibuprofen [Motrin] 600 mg PO Q6 #30 tab 04/18/17 Benzonatate [Tessalon Perles] 100 mg PO BID PRN 5 Days sgl 08/15/17 Ibuprofen [Motrin] 600 mg PO TID 7 Days tab 08/15/17 Albuterol 0.083% [Albuterol 3 ml IH Q4 PRN #50 neb 08/28/17 Sulfate 3 Ml] RX: Azithromycin 1 tab PO DAILY #6 tab 08/28/17 RX: Nebulizer [Aeroeclipse II] 1 each MC PRN PRN #1 each 08/28/17 RX: Prednisone 50 mg PO DAILY #4 tablet 08/28/17 Albuterol HFA [Ventolin HFA 90 1 puff IH ASDIR #1 unit 09/25/17 mcg/actuation (8 g)] Oseltamivir Phosphate [Tamiflu] 75 mg PO BID #10 capsule 09/25/17 RX: Benzonatate 200 mg PO TID PRN #20 capsule 09/25/17 RX: Prednisone 50 mg PO DAILY #5 tablet 09/25/17 Famotidine [Pepcid] 20 mg PO Q12 #20 tab 12/25/17 Ondansetron [Zofran] 4 mg PO Q8H #10 tab 12/25/17 Dicyclomine [Bentyl] 20 mg PO QID PRN #20 tab 01/02/18 Omeprazole Magnesium [Prilosec Otc] 20 mg PO DAILY #30 tcp 01/02/18 RX: Ibuprofen [Motrin Tab] 600 mg PO Q8 PRN #30 tab 01/02/18 Ondansetron ODT [Zofran ODT] 4 mg PO BID #6 odt 04/29/18 Cefdinir [Omnicef] 300 mg PO BID #14 cap 08/26/18 Ondansetron ODT [Zofran ODT] 4 mg PO Q6 PRN #12 odt 08/26/18 RX: Naproxen 500 mg PO BID PRN #20 tab 08/26/18 - Allergies Allergies/Adverse Reactions: Allergies Allergy/AdvReac Type Severity Reaction Status Date / Time banana Allergy SHORTNESS Verified 08/26/18 00:26 OF BREATH walnut Allergy SHORTNESS Verified 08/26/18 00:26 OF BREATH dust Allergy Unknown SHORTNESS Uncoded 08/26/18 00:26 OF BREATH Review of Systems ROS Statement: Except As Marked, All Systems Reviewed And Found Negative Constitutional: Negative for: Fever Cardiovascular: Negative for: Chest Pain Respiratory: Negative for: Cough, Shortness of Breath Gastrointestinal: Positive for: Vomiting, Abdominal Pain. Negative for: Diarrhea Genitourinary Female: Negative for: Dysuria, Frequency, Incontinence, Hematuria Physical Exam - Reviewed Nursing Documentation Reviewed: Yes Vital Signs Reviewed: Yes - Physical Exam Comments: GENERAL APPEARANCE: Patient is awake, alert, oriented x 3, in no distress. SKIN: Warm, dry; (-) cyanosis. EYES: (-) conjunctival pallor, (-) scleral icterus. ENMT: Mucous membranes moist. Airway patent, (-) stridor. NECK: Supple, FROM CHEST AND RESPIRATORY: (-) rales, (-) rhonchi, (-) wheezes; breath sounds equal bilaterally. Respirations even and nonlabored. HEART AND CARDIOVASCULAR: (-) irregularity ABDOMEN AND GI: Soft (-) distention. Bowel sounds active x4; (+) mild tenderness to periumbilical region. (-) guarding, (-) rebound, (-) palpable masses, (-) CVA tenderness. Multiple 1cm healed surgical incisions noted to abdomen. EXTREMITIES: (-) deformity NEURO AND PSYCH: Mental status as above; (-) focal findings. Gait: steady. Speech: clear. (-) facial asymmetry (-) aphasia - Laboratory Results Result Diagrams: 08/26/18 01:10 08/26/18 01:10 - ECG O2 Sat by Pulse Oximetry: 98 (RA) Pulse Ox Interpretation: Normal Medical Decision Making Medical Decision Making: Time: 01:00 Initial Impression: abdominal pain and vomiting Initial Plan: * CMP * Lipase * ED Urine * CBC w/ diff * IV Fluids * Pepcid 40 mg * Toradol 30 mg * Zofran 4 mg * UA * Upreg 0230 CBC with slight leukocytosis. CMP grossly unremarkable. 0250 On re-evaluation, patient reporting improvement of abdominal discomfort but now with dizziness. Meclizine PO and influenza ordered. 0420 U/A reviewed: (+) UTI U/C ordered. Macrobid 100mg PO ordered. 0630 Influenza: negative On re-evaluation, patient reports improvement of symptoms. On exam, patient remains AAOx3, in no acute distress. Lungs clear to auscultation, cardiac RRR, abdomen soft, non-tender, repeat neuro exam shows no focal findings. Vitals stable. Lab/Diagnostic results d/w the patient in great detail. Diagnosis of abdominal pain, UTI, vomiting d/w the patient. Based on history, exam and diagnostic results, plan will be for outpatient follow up with PMD. Patient instructed to follow-up with pmd / referral provided / the clinic in 1- 2 days without fail. Advised to take medication as prescribed. Return to the emergency room at any time for any new or worsening symptoms. Patient states she fully agrees with and understands discharge instructions. States that she agrees with the plan and disposition. Verbalized and repeated discharge instructions and plan. I have given the patient opportunity to ask any additional questions. Scribe Attestation: Documented by Willie Baez acting as a scribe for Annabelle Jacobs PA-C. Provider Scribe Attestation: All medical record entries made by the Scribe were at my direction and personally dictated by me. I have reviewed the chart and agree that the record accurately reflects my personal performance of the history, physical exam, medical decision making, and the department course for this patient. I have also personally directed, reviewed, and agree with the discharge instructions and disposition. Disposition - Clinical Impression Clinical Impression: Abdominal pain, UTI (urinary tract infection), Nausea and vomiting - Patient ED Disposition Is Patient to be Admitted: No Counseled Patient/Family Regarding: Studies Performed, Diagnosis, Need For Followup, Rx Given - Disposition Referrals: Ketan Bassett MD [Staff Provider] - Disposition: Routine/Home Disposition Time: 06:30 Condition: STABLE Additional Instructions: The emergency medical care you received today was directed at your acute symptoms. If you were prescribed any medication, please fill it and take as directed. It may take several days for your symptoms to resolve. Return to the Emergency Department if your symptoms worsen, do not improve, or if you have any other problems. Please contact your doctor in 2 days for re-evaluation and follow up / or call one of the physicians/clinics you have been referred to that are listed on the Patient Visit Information form that is included in your discharge packet. Bring any paperwork you were given at discharge with you along with any medications you are taking to your follow up visit. Our treatment cannot replace ongoing medical care by a primary care provider (PCP) outside of the emergency department. Prescriptions: Cefdinir [Omnicef] 300 mg PO BID #14 cap RX: Naproxen 500 mg PO BID PRN #20 tab PRN Reason: Pain, Moderate (4-7) Ondansetron ODT [Zofran ODT] 4 mg PO Q6 PRN #12 odt PRN Reason: Nausea/Vomiting Instructions: Urinary Tract Infections in Adults, Acute Abdomen (Belly Pain), Nausea and Vomiting, Adult (DC) Forms: MVERSE (Serbian) Print Language: SINHALA - POA Present On Arrival: None Results - Lab Results Lab Results: 08/26/18 08/26/18 08/26/18 05:50 03:10 01:10 WBC RBC Hgb Hct MCV MCH MCHC RDW Plt Count MPV Neut % (Auto) Lymph % (Auto) [place] % (Auto) Eos % (Auto) Baso % (Auto) Neut # (Auto) Lymph # (Auto) [place] # (Auto) Eos # (Auto) Baso # (Auto) Sodium 142 Potassium 3.5 L Chloride 104 Carbon Dioxide 24 Anion Gap 18 BUN 13 Creatinine 0.6 L Est GFR ( Amer) > 60 Est GFR (Non-Af Amer) > 60 Random Glucose 121 H Calcium 9.3 Total Bilirubin 0.9 AST 110 H D ALT 48 Alkaline Phosphatase 81 Total Protein 7.7 Albumin 4.1 Globulin 3.6 Albumin/Globulin Ratio 1.1 Lipase 174 Urine Color [place] Urine Clarity Cloudy Urine pH 5.0 Ur Specific [place] 1.035 H Urine Protein 100 Urine Glucose (UA) Neg Urine Ketones 20 Urine Blood Negative Urine Nitrate Negative Urine Bilirubin Moderate Urine Urobilinogen 4.0 H Ur Leukocyte Esterase Trace Urine RBC (Auto) 7 H Urine Microscopic WBC 11 H Ur Squamous Epith Cells 15 H Calcium Oxalate Crystal Few H Urine Bacteria Rare Influenza Typ A,B (EIA) Negative for flu a/b 08/26/18 01:10 WBC 12.6 H RBC 4.32 Hgb 12.8 Hct 39.3 MCV 91.1 D MCH 29.5 MCHC 32.4 L RDW 15.3 H Plt Count 201 MPV 9.5 Neut % (Auto) 81.3 H Lymph % (Auto) 15.0 L [place] % (Auto) 2.3 Eos % (Auto) 1.0 Baso % (Auto) 0.4 Neut # (Auto) 10.2 H Lymph # (Auto) 1.9 [place] # (Auto) 0.3 Eos # (Auto) 0.1 Baso # (Auto) 0.0 Sodium Potassium Chloride Carbon Dioxide Anion Gap BUN Creatinine Est GFR ( Amer) Est GFR (Non-Af Amer) Random Glucose Calcium Total Bilirubin AST ALT Alkaline Phosphatase Total Protein Albumin Globulin Albumin/Globulin Ratio Lipase Urine Color Urine Clarity Urine pH Ur Specific [place] Urine Protein Urine Glucose (UA) Urine Ketones Urine Blood Urine Nitrate Urine Bilirubin Urine Urobilinogen Ur Leukocyte Esterase Urine RBC (Auto) Urine Microscopic WBC Ur Squamous Epith Cells Calcium Oxalate Crystal Urine Bacteria Influenza Typ A,B (EIA)
[2018-08-26 01:34] LABS: BASO % 0.4 % (0.0-2.0); EOS # 0.1 K/uL (0.0-0.7); HEMOGLOBIN 12.8 g/dL (12.0-16.0); LYMPH # 1.9 K/uL (1.0-4.3); MEAN CELL VOLUME 91.1 fl (81.0-99.0); MEAN CORPUSCULAR HEMOGLOBIN 29.5 pg (27.0-31.0); MEAN CORPUSCULAR HGB CONC 32.4 g/dL (33.0-37.0); MEAN PLATELET VOLUME 9.5 fl (7.2-11.7); MONO # 0.3 K/uL (0.0-0.8); MONO % 2.3 % (0.0-10.0); NEUT # 10.2 K/uL (1.8-7.0); NEUT % 81.3 % (50.0-75.0); RBC 4.32 Mil/uL (3.80-5.20); RED CELL DISTRIBUTION WIDTH 15.3 % (11.5-14.5); WHITE BLOOD COUNT 12.6 K/uL (4.8-10.8)
[2018-08-26 01:47] LABS: ALB/GLOB RATIO 1.1 (1.0-2.1); ALBUMIN 4.1 g/dL (3.5-5.0); ALT/SGPT 48 U/L (9-52); AST/SGOT 110 U/L (14-36); BLOOD UREA NITROGEN 13 mg/dl (7-17); CALCIUM 9.3 mg/dL (8.4-10.2); GFR NON-AFRICAN AMERICAN > 60; LIPASE 174 U/L (23-300)
[2018-08-26 03:39] LABS: SQUAMOUS EPITHIAL 15 /hpf (0-5); URINE BACTERIA RARE (<OCC); URINE BILIRUBIN MODERATE (NEGATIVE); URINE BLOOD NEGATIVE (NEGATIVE); URINE CALCIUM OXALATE CRYSTALS FEW /hpf (<OCC); URINE CLARITY CLOUDY (Clear); URINE COLOR AMBER (YELLOW); URINE GLUCOSE (UA) NEG (NEGATIVE); URINE LEUKOCYTE ESTERASE TRACE Leu/uL (Negative); URINE PROTEIN 100 mg/dL (NEGATIVE)
== END | disposition home or self-care (01) ==
LOC: H.ER 00:22
DX: N39.0 Urinary tract infection, site not specified (principal); R10.9 Unspecified abdominal pain
CPT/HCPCS: 80053; 81003; 83690; 85025; 87804; 96374; 96375; 99281; J1885; J2405; J7030

== ENCOUNTER 2018-11-13 00:21 | Emergency (ER) | payer MEDICAID ==
[2018-11-13 00:22] VITALS: BMI 38.7
--- NOTE | 2018-11-13 01:46 | ED PDOC ---
Upper Extremity Pain/Injury Time Seen by Provider: 11/13/18 01:30 Chief Complaint (Nursing): Trauma Chief Complaint (Provider): right arm injury History Per: Patient History/Exam Limitations: no limitations Onset/Duration Of Symptoms: Days (1) Current Symptoms Are (Timing): Still Present Additional Complaint(s): 28 y/o female presents for evaluation of right arm injury sustained yesterday morning. Patient states she tripped and fell, landing on right arm. Patient reports pain to right elbow, right wrist with movement. Denies numbness/weakness right upper extremity, limitation of movement. Little relief provided with one Tylenol tablet taken mid-day. Past Medical History Reviewed: Historical Data, Nursing Documentation, Vital Signs Vital Signs: Last Vital Signs Temp 97.5 F L 11/13/18 00:25 Pulse 75 11/13/18 00:25 Resp 18 11/13/18 00:25 BP 102/67 11/13/18 00:25 Pulse Ox 98 11/13/18 00:25 - Medical History PMH: Asthma, Chronic Pain (Back pain ) Denies: Chronic Kidney Disease - Surgical History Other surgeries: gastric sleeve - Family History Family History: States: Unknown Family Hx - Immunization History Hx Tetanus Toxoid Vaccination: No Hx Influenza Vaccination: No Hx Pneumococcal Vaccination: No - Home Medications Home Medications: Ambulatory Orders Medication Instructions Recorded Proventil Hfa 2 puff INH BID 06/18/13 Nitrofurantoin Macrocrystals 100 mg PO BID #14 cap 11/15/16 [Macrobid] Ibuprofen [Motrin] 600 mg PO Q6 #30 tab 04/18/17 Benzonatate [Tessalon Perles] 100 mg PO BID PRN 5 Days sgl 08/15/17 Ibuprofen [Motrin] 600 mg PO TID 7 Days tab 08/15/17 Albuterol 0.083% [Albuterol 3 ml IH Q4 PRN #50 neb 08/28/17 Sulfate 3 Ml] Azithromycin 1 tab PO DAILY #6 tab 08/28/17 Nebulizer [Aeroeclipse II] 1 each MC PRN PRN #1 each 08/28/17 Prednisone 50 mg PO DAILY #4 tablet 08/28/17 Albuterol HFA [Ventolin HFA 90 1 puff IH ASDIR #1 unit 09/25/17 mcg/actuation (8 g)] Benzonatate 200 mg PO TID PRN #20 capsule 09/25/17 Oseltamivir Phosphate [Tamiflu] 75 mg PO BID #10 capsule 09/25/17 Prednisone 50 mg PO DAILY #5 tablet 09/25/17 Famotidine [Pepcid] 20 mg PO Q12 #20 tab 12/25/17 Ondansetron [Zofran] 4 mg PO Q8H #10 tab 12/25/17 Dicyclomine [Bentyl] 20 mg PO QID PRN #20 tab 01/02/18 Ibuprofen [Motrin Tab] 600 mg PO Q8 PRN #30 tab 01/02/18 Omeprazole Magnesium [Prilosec Otc] 20 mg PO DAILY #30 tcp 01/02/18 Ondansetron ODT [Zofran ODT] 4 mg PO BID #6 odt 04/29/18 Cefdinir [Omnicef] 300 mg PO BID #14 cap 08/26/18 Naproxen 500 mg PO BID PRN #20 tab 08/26/18 Ondansetron ODT [Zofran ODT] 4 mg PO Q6 PRN #12 odt 08/26/18 Ibuprofen [Motrin Tab] 1 tab PO Q6 PRN #20 tab 11/13/18 - Allergies Allergies/Adverse Reactions: Allergies Allergy/AdvReac Type Severity Reaction Status Date / Time banana Allergy SHORTNESS Verified 11/13/18 00:25 OF BREATH walnut Allergy SHORTNESS Verified 11/13/18 00:25 OF BREATH dust Allergy Unknown SHORTNESS Uncoded 11/13/18 00:25 OF BREATH Review of Systems ROS Statement: Except As Marked, All Systems Reviewed And Found Negative Musculoskeletal: Positive for: Arm Pain (right), Hand Pain (right) Physical Exam - Reviewed Nursing Documentation Reviewed: Yes Vital Signs Reviewed: Yes - Physical Exam Appears: Positive for: Well, Non-toxic, No Acute Distress Pulses-Radial (L): 2+ Pulses-Radial (R): 2+ Extremity: Positive for: Normal ROM, Swelling (edema/ecchymosis ulnar aspect right wrist. FROM. Distal NV/motor intact. Tenderness right olecranon process without edema/ecchymosis/deformity. FROM. ) Neurological/Psych: Positive for: Awake, Alert, Oriented (x3) - ECG O2 Sat by Pulse Oximetry: 98 - Other Rad xray right elbow X-Ray: Viewed By Me, Read By Radiologist X-Ray Interpretation: no acute findings xray right wrist X-Ray: Viewed By Me X-Ray Interpretation: no acute findings xray right hand X-Ray: Viewed By Me X-Ray Interpretation: no acute findings - Progress ED Course And Treament: -xray right elbow -xray right wrist -xray right hand -Ibuprofen PO Patient educated on findings, discharged with rx ibuprofen Right wrist placed in immobilizer, sling applied Advised RICE FOllow up with PMD within 2-3 days Return precautions given Disposition - Clinical Impression Clinical Impression: Contusion of right wrist, Injury of right elbow - Patient ED Disposition Is Patient to be Admitted: No Counseled Patient/Family Regarding: Studies Performed, Diagnosis, Need For Followup, Rx Given - Disposition Referrals: Ketan Bassett MD [Primary Care Provider] - Disposition: Routine/Home Disposition Time: 03:30 Condition: IMPROVED Prescriptions: Ibuprofen [Motrin Tab] 1 tab PO Q6 PRN #20 tab PRN Reason: Pain, Moderate (4-7) Instructions: Contusion (DC), Common Wrist Injuries, Elbow Sprain (DC)
[2018-11-13 05:44] VITALS: BP 106/66; PULSE 68; RESP 16; TEMP 98; O2SAT 100
--- NOTE | 2018-11-13 08:28 | RAD ---
Date of service: 11/13/2018 PROCEDURE: Radiographs of the right elbow. HISTORY: fall COMPARISON: No prior. TECHNIQUE: 3 views obtained. FINDINGS: BONES: No acute fracture or destructive bony lesion identified. JOINTS: No subluxation or dislocation demonstrated. No osteoarthritis. SOFT TISSUES: Normal. JOINT EFFUSION: None. OTHER FINDINGS: None. IMPRESSION: Unremarkable radiographs of the right elbow.
--- NOTE | 2018-11-13 08:30 | RAD ---
Date of service: 11/13/2018 PROCEDURE: Right Wrist Radiographs. HISTORY: fall, pain/bruising medial aspect COMPARISON: None. TECHNIQUE: 4 views obtained. FINDINGS: BONES: No acute fracture or destructive bony lesion identified throughout the carpal bones including the navicular bone. JOINTS: No subluxation appreciated. No dislocation. SOFT TISSUES: Normal. OTHER FINDINGS: None. IMPRESSION: Normal right wrist radiographs.
--- NOTE | 2018-11-13 08:34 | RAD ---
PROCEDURE: Right Hand Radiographs. HISTORY: fall, pain COMPARISON: None. TECHNIQUE: 3 views obtained. FINDINGS: BONES: No acute fracture or destructive bony lesion identified. JOINTS: No dislocation or subluxation appreciated. No osteoarthritic changes. SOFT TISSUES: Normal. OTHER FINDINGS: None. IMPRESSION: Normal right hand radiographs.
== END 2018-11-13 04:45 | disposition home or self-care (01) ==
LOC: H.ER 00:21
DX: S60.211A Contusion of right wrist, initial encounter (principal); S59.901A Unspecified injury of right elbow, initial encounter; J45.909 Unspecified asthma, uncomplicated; G89.29 Other chronic pain; W01.0XXA Fall on same level from slipping, tripping and stumbling without subsequent striking against object, initial encounter